=== PATIENT | female | born 1945 | race Asian ===

== ENCOUNTER 2018-03-29 07:12 | Day surgery (SDC) | payer OTHER, MEDICARE ==
[2018-03-29] MEDS ORDERED: ACETAMINOPHEN 325 MG TABLET (FP) ONE (07:48)
[2018-03-29] MEDS ORDERED: ZOLEDRONIC ACID/MAN/WATER 5 MG/100 ML INFUS..BTL IVPB ONE (08:00)
[2018-03-29 08:08] LABS: ALBUMIN 3.5 g/dl (3.4-5.0); ALK PHOS 75 U/L (45-117); ANION GAP 5 MMOL/L (8-16); BILIRUBIN,TOTAL 0.5 mg/dL (0.2-1); BLOOD UREA NITROGEN 16 mg/dL (7-18); CHLORIDE 106 mmol/L (98-107); CO2 30 mmol/L (21-32); CREATININE 0.8 mg/dL (0.55-1.3); GLUCOSE,RANDOM 83 mg/dL (74-106); POTASSIUM 4.1 mmol/L (3.5-5.1); SGOT/AST 22 U/L (15-37); SGPT/ALT 28 U/L (13-61); SODIUM 141 mmol/L (136-145)
[2018-03-29] MEDS ORDERED: ACETAMINOPHEN 325 MG TABLET (FP) PO ONE (08:15)
[2018-03-29 08:35] VITALS: TEMP 98.5
[2018-03-29 09:44] VITALS: BP 146/88; PULSE 60
== END 2018-03-29 09:30 | disposition home or self-care (01) ==
LOC: JCHEMO 07:12
PROVIDERS: ATTEND Internal Medicine Endocrinology, Diabetes & Metabolism
PROC: 3E033GC Introduction of Other Therapeutic Substance into Peripheral Vein, Percutaneous Approach (ICD-10-PCS; principal; 2018-03-29)
DX: M81.0 Age-related osteoporosis without current pathological fracture (principal)
CPT/HCPCS: 36415; 80053; 96365; J3489

== ENCOUNTER 2020-09-03 20:50 | Inpatient (IN) | payer OTHER, MEDICARE ==
[2020-09-03 20:56] VITALS: BMI 22.4
[2020-09-03] MEDS ORDERED: ACETAMINOPHEN 325 MG TABLET (FP) PO ONE (21:35)
[2020-09-03] MEDS ORDERED: ACETAMINOPHEN 325 MG TABLET (FP) ONE (21:38)
[2020-09-03 22:12] LABS: BASO % 0.4 % (0-2.0); EOS % 1.9 % (0-4.5); HEMATOCRIT 41.6 % (32.4-45.2); HEMOGLOBIN 14.2 GM/dL (10.7-15.3); LYMPH % 33.1 % (8-40); MCH 31.1 pg (25.7-33.7); MCHC 34.1 g/dl (32.0-36.0); MEAN CELL VOLUME 91.1 fl (80-96); MEAN PLT VOLUME 8.4 fl (7.5-11.1); MONO % 13.4 % (3.8-10.2); NEUT % 51.2 % (42.8-82.8); PLATELET COUNT 216 K/MM3 (134-434); RBC 4.56 M/mm3 (3.60-5.2); RDW 13.1 % (11.6-15.6); WHITE BLOOD COUNT 6.5 K/mm3 (4.0-10.0)
[2020-09-03 22:22] LABS: INR 0.89 (0.83-1.09); PROTHROMBIN TIME (PATIENT) 10.8 SEC (9.7-13.0)
[2020-09-03 22:24] LABS: ACTIVATED PTT 25.7 SECONDS (25.2-36.5)
[2020-09-03 22:42] LABS: CHLORIDE 104 mmol/L (98-107); SODIUM 141 mmol/L (136-145)
[2020-09-03 22:46] LABS: ALBUMIN 3.6 g/dl (3.4-5.0); ANION GAP 7 MMOL/L (8-16); CALCIUM 9.7 mg/dL (8.5-10.1); CO2 30 mmol/L (21-32)
[2020-09-03 22:47] LABS: GLUCOSE,RANDOM 109 mg/dL (74-106); MAGNESIUM 2.5 mg/dL (1.8-2.4)
[2020-09-03 22:49] LABS: SGPT/ALT 30 U/L (13-61)
[2020-09-03 22:50] LABS: CREATININE 1.3 mg/dL (0.55-1.3); PHOSPHOROUS 3.6 mg/dL (2.5-4.9)
[2020-09-03 22:51] LABS: BILIRUBIN,TOTAL 0.3 mg/dL (0.2-1); TOT PROT 7.3 g/dl (6.4-8.2)
[2020-09-03 22:52] LABS: ALK PHOS 99 U/L (45-117)
[2020-09-03 23:05] LABS: SGOT/AST 21 U/L (15-37)
[2020-09-04 06:32] VITALS: TEMP 98.4
[2020-09-04] MEDS ORDERED: ENOXAPARIN NA (PORCINE) 40 MG/0.4 ML DISP.SYRIN SQ SCH (10:00)
[2020-09-04] MEDS ORDERED: CLOPIDOGREL BISULFATE 75 MG TABLET (FP) PO SCH (10:00)
[2020-09-04] MEDS ORDERED: CLOPIDOGREL BISULFATE 75 MG TABLET (FP) ONE (11:02)
[2020-09-04] MEDS ORDERED: ENOXAPARIN NA (PORCINE) 40 MG/0.4 ML DISP.SYRIN SQ ONE (11:03)
[2020-09-04 12:09] LABS: BASO % 0.3 % (0-2.0); HEMOGLOBIN 13.3 GM/dL (10.7-15.3); LYMPH % 36.6 % (8-40); MCHC 34.1 g/dl (32.0-36.0); MEAN CELL VOLUME 90.9 fl (80-96); MEAN PLT VOLUME 7.9 fl (7.5-11.1); NEUT % 49.1 % (42.8-82.8); PLATELET COUNT 206 K/MM3 (134-434); RBC 4.29 M/mm3 (3.60-5.2); RDW 13.1 % (11.6-15.6); WHITE BLOOD COUNT 5.5 K/mm3 (4.0-10.0)
[2020-09-04 12:34] LABS: CHLORIDE 106 mmol/L (98-107); POTASSIUM 3.6 mmol/L (3.5-5.1); SODIUM 138 mmol/L (136-145)
[2020-09-04 12:39] LABS: ANION GAP 4 MMOL/L (8-16); BLOOD UREA NITROGEN 12.4 mg/dL (7-18); CO2 29 mmol/L (21-32)
[2020-09-04 12:40] LABS: ALBUMIN 3.4 g/dl (3.4-5.0); GLUCOSE,RANDOM 97 mg/dL (74-106); MAGNESIUM 2.4 mg/dL (1.8-2.4)
[2020-09-04 12:42] LABS: CHOLESTEROL 173 mg/dL (50-200); CREATININE 0.8 mg/dL (0.55-1.3); SGOT/AST 15 U/L (15-37); SGPT/ALT 27 U/L (13-61); TRIGLYCERIDES 132 mg/dL (0-150)
[2020-09-04 12:43] LABS: BILIRUBIN,TOTAL 0.4 mg/dL (0.2-1); HDL CHOLESTEROL 68 mg/dL (40-60); LDL CHOLESTEROL (ONLY SJRH) 85 mg/dL (5-100); PHOSPHOROUS 3.2 mg/dL (2.5-4.9); TOT PROT 6.8 g/dl (6.4-8.2)
[2020-09-04 12:45] LABS: ALK PHOS 77 U/L (45-117)
[2020-09-04 15:13] VITALS: BP 139/82; PULSE 73
== END 2020-09-04 15:30 | disposition home or self-care (01) | DRG 312 ==
LOC: JER 20:50 → JERBED 09-04 00:09 → OBSVTOIN 09-04 05:32
PROVIDERS: ADMIT Internal Medicine; ATTEND Internal Medicine
DX: R55 Syncope and collapse (principal); E78.5 Hyperlipidemia, unspecified; K21.9 Gastro-esophageal reflux disease without esophagitis; I10 Essential (primary) hypertension; Z86.73 Personal history of transient ischemic attack (TIA), and cerebral infarction without residual deficits; W18.39XA Other fall on same level, initial encounter; Y92.098 Other place in other non-institutional residence as the place of occurrence of the external cause
CPT/HCPCS: 36415; 70450-TC; 71045-TC-FY; 72125-TC; 73030-TC-LT-FY; 73070-TC-LT-FY; 73562-TC-LT-FY; 80053; 80061; 82550; 83036; 83721; 83735; 84100; 84443; 84484; 85025; 85610; 85730; 93005; 93010; 93306-TC; 93880-TC; 99285-25; C9803; G0378; U0003